=== PATIENT | female | born 1965 | race Two or more races ===

== ENCOUNTER 2017-12-01 09:19 | Day surgery (SDC) | payer OTHER ==
--- NOTE | 2017-11-19 10:42 | HP ---
PREOPERATIVE HISTORY AND PHYSICAL: DATE OF ADMISSION/SURGERY: 12/01/17 [facility] ATTENDING PHYSICIAN: Sarita Redding MD * (DICTATED BY CHRISTY STARKEY) PRINCIPAL DIAGNOSIS: Right carpal tunnel syndrome and right cubital tunnel syndrome. PROCEDURE: Right carpal tunnel release and ulnar nerve decompression at the elbow. CHIEF COMPLAINT: Right hand numbness and tingling. HISTORY OF PRESENT ILLNESS: This is a 52-year-old female who complains of numbness and tingling in her right hand. This has been going on for several months. She does not recall any specific injury. She has numbness and tingling in her little finger as well as in the radial 3 digits. She had not had any treatment. She rates her pain as 5/10. Numbness comes and goes. She has had electrodiagnostic studies, which were positive for carpal tunnel syndrome. She is scheduled to undergo right wrist carpal tunnel release and ulnar nerve decompression at the elbow with Dr. Redding on 12/01/17. PAST MEDICAL HISTORY: Negative. PAST SURGICAL HISTORY: Eye surgery for cataract. FAMILY HISTORY: Noncontributory. SOCIAL HISTORY: She lives with her . She works as a cook. She quit smoking about a month ago. She consumes 5 to 6 alcoholic drinks per week. Denies recreational drug use. REVIEW OF SYSTEMS: General: Negative for fevers, chills, night sweats. No known anesthesia problems. HEENT: Negative for headaches, lightheadedness, or syncopal episodes. Integumentary: Negative for abrasions, lesions, or open wounds. Cardiothoracic: Negative for hypertension, atrial fibrillation. Negative for chest pain, palpitations or edema. Pulmonary: Negative for shortness of breath with exertion, chronic cough, COPD. GI: Negative or nausea , vomiting, diarrhea, constipation or GERD. : Negative for nocturia, urinary frequency, urgency, history of UTIs, or kidney problems. Musculoskeletal: Positive for current complaints. Negative for chronic or intermittent back pain. Neurological: Negative for history of seizures, stroke or epilepsy. Negative for anxiety or depression. Endocrine: Negative for diabetes or thyroid issues. Hematological: Negative for easy bruising or bleeding. Negative for DVT. Infectious disease: Negative for history of MRSA, hepatitic C or HIV. PHYSICAL EXAMINATION GENERAL: Well-developed, well nourished, 52-year-old female, in no acute distress. Awake, alert and oriented x3. Appropriate mood and affect. VITAL SIGNS: Height 64 inches, pulse is 92, blood pressure is 118/70, respirations 16, temperature is 98.0. HEENT: Head is normocephalic, atraumatic. Pupils are equal and round and react to light and accommodation. NECK: Supple with no palpable lymph nodes. Throat is clear. PULMONARY: Lungs clear to auscultation bilaterally. No wheezes, rales or rhonchi. CARDIOVASCULAR: Regular rate and rhythm. S1, S2. No murmurs, rubs or gallops. No edema. ABDOMEN: Soft, nontender. Positive bowel sounds throughout. NEUROLOGIC: Alert and oriented x3. Cranial nerves II through XII are grossly intact. Sensation is intact to light touch. MUSCULOSKELETAL: Right upper extremity: No soft tissue swelling or bruising. She has positive Tinel's sign at the ulnar nerve, the elbow and positive Tinel' s in the wrist. She will open and close her fingers without pain. She has full painless wrist motion. STUDIES: Electrodiagnostic studies done on 11/09/[address] Dey showed right moderate carpal tunnel syndrome. IMPRESSION: Right wrist carpal tunnel syndrome. PLAN/RECOMMENDATIONS: The patient is scheduled to undergo right wrist carpal tunnel release and ulnar nerve decompression at the elbow with Dr. Redding on 11/15. She will return to the office in 10 to 14 days postoperatively for followup and suture removal. A prescription for tramadol will be sent to the patient's pharmacy for postoperative pain management. CHRISTY STARKEY [id number]/CPS #: [id number] [facility]
[~2017-12-01 09:19] MED LIST: Buffered Lidocaine 0.9% SYRIN* 5 ML/SYR SYRINGE INTRADERM ONE
[2017-12-01] MEDS ORDERED: ceFAZolin 2 GM PREMIX (*) 2 GM/50 ML BAG IVPB ONE (09:21)
[2017-12-01] MEDS ORDERED: Bupivacaine 0.5%* 50 ML VIAL ONE (11:40)
[2017-12-01] MEDS ORDERED: fentaNYL* 50 MCG/ML 2 ML VIAL (100 MCG VIAL) ONE (11:49)
[2017-12-01] MEDS ORDERED: Propofol* 10 MG/ML 20 ML BTL IV PUSH ONE (12:00)
[2017-12-01] MEDS ORDERED: Lidocaine 2% PF * 5 ML VIAL ONE (12:00)
[2017-12-01] MEDS ORDERED: Naloxone* 0.4 MG/ML 1 ML VIAL IV PRN (12:08)
[2017-12-01] MEDS ORDERED: fentaNYL* 50 MCG/ML 2 ML VIAL (100 MCG VIAL) IV PRN (12:08)
[2017-12-01] MEDS ORDERED: Acetaminophen TAB* 325 MG PO PRN (12:08)
[2017-12-01] MEDS ORDERED: Acetaminophen TAB* 325 MG ONE (13:07)
[2017-12-01 13:46] VITALS: BP 140/73
--- NOTE | 2017-12-02 03:33 | OP ---
DATE OF OPERATION: 12/01/17 - [facility] DATE OF : 67 SURGEON: Dr. Redding. DIRECTOR OF NEIGHBORHOOD SERVICE CENTER: CHRISTY Bravo ANESTHESIA: General. PRE-OP DIAGNOSES: Right ulnar nerve compression of the elbow and right carpal tunnel syndrome. POST-OP DIAGNOSES: Right ulnar nerve compression of the elbow and right carpal tunnel syndrome. OPERATIVE PROCEDURE: Right ulnar nerve decompression of the elbow and right carpal tunnel release. ESTIMATED BLOOD LOSS: Zero. TOURNIQUET TIME: Approximately 30 minutes. INDICATIONS FOR PROCEDURE: Netta is a 52-year-old woman with numbness and tingling in the median and ulnar nerve distribution of the right hand. Nerve conduction studies showed carpal tunnel syndrome. She has positive Tinel sign of the ulnar nerve at the elbow. She presents for ulnar nerve decompression of the elbow and a carpal tunnel release, both on the right. DESCRIPTION OF PROCEDURE: The patient was brought to the operating room, was given a general anesthetic and placed in the supine position on the operating table with a tourniquet around her right upper arm. Skin of her right upper extremity was prepped and draped in the usual sterile fashion. The upper extremity was exsanguinated and the tourniquet elevated to 250 mmHg. A longitudinal incision was made in the palm in line with the ring finger. We dissected sharply through the subcutaneous tissue, down to the transverse carpal ligament. The ligament was divided sharply with the knife and then more proximally with the scissors. The nerve was dissected free from the surrounding tissue and there was an area of moderate compression at the mid portion of the ligament. The wound was irrigated and the skin edges were reapproximated with 4-0 nylon suture. Next, a curvilinear incision was made centered between the medial epicondyle and the tip of the olecranon process. We dissected bluntly through the subcutaneous tissue down to the ulnar nerve just proximal to the elbow. The nerve was carefully dissected through the cubital tunnel. The superficial and deep fascia of the FCU muscle was divided and then we dissected the nerve out proximally several centimeters. The medial inter-muscular septum was divided. The nerve was in good condition. The wound was irrigated and the subcutaneous tissue closed with 2-0 Polysorb and the skin with skin florinda. The wounds were both dressed with Xeroform, 4x4's, Webril, and an Austin wrap. The patient tolerated the procedure well and was brought to the recovery room in good condition. [id number]/[facility] #: [id number] [facility]
== END 2017-12-01 14:17 | disposition home or self-care (01) ==
LOC: OR 09:19
PROVIDERS: ATTEND Orthopaedic Surgery
DX: G56.01 Carpal tunnel syndrome, right upper limb (principal); G56.21 Lesion of ulnar nerve, right upper limb; Z87.891 Personal history of nicotine dependence; M19.90 Unspecified osteoarthritis, unspecified site
CPT/HCPCS: A9270-GY; J0690; J2704; J3010

== ENCOUNTER 2019-02-21 09:02 | Day surgery (SDC) | payer OTHER ==
--- NOTE | 2019-02-10 12:29 | HP ---
PREOPERATIVE HISTORY AND PHYSICAL: DATE OF ADMISSION/SURGERY: 02/21/19 [facility] ATTENDING SURGEON: Dr. Rafael Robin.* (DICTATED BY CHRISTY AREVALO) PROCEDURES: Right shoulder arthroscopic rotator cuff repair, decompression, debridement and possible subpectoral biceps tenodesis, excision of distal clavicle, removal of loose body. CHIEF COMPLAINT: Right shoulder. HISTORY OF PRESENT ILLNESS: Netta is a 54-year-old female who presents to clinic for right shoulder pain due to a rotator cuff tear due to a work-related injury. She has failed conservative measures, therefore agreed to undergo right shoulder arthroscopic rotator cuff repair, decompression, debridement, and possible subpectoral biceps tenodesis, excision distal clavicle, removal of loose body with Dr. Robin on 02/21/19. PAST MEDICAL HISTORY: Hyperthyroidism. PAST SURGICAL HISTORY: Cataract, right elbow and wrist, and . The patient denies prior complications with anesthesia. MEDICATIONS: 1. Iron daily. 2. Methimazole 10 mg 1 daily. 3. Brimonidine tartrate 0.15% 1 drop right eye 3 times a day. 4. Dorzolamide 2% 1 drop right eye twice a day. ALLERGIES: No known drug allergies. FAMILY HISTORY: Positive for [place]. Denies family history of DVT or PE. SOCIAL HISTORY: She lives with her . She works as a cook. She is a former smoker. She reports occasional alcohol consumption. She exercises regularly. She is right hand dominant. REVIEW OF SYSTEMS: A 14-point review of systems was reviewed with the patient. Positive for current complaint, otherwise negative. Denies fever, chills, chest pain, shortness of breath, history of bleeding disorder, history of DVT or PE. PHYSICAL EXAMINATION GENERAL: A 54-year-old, well-developed, well-nourished female, in no acute distress. VITAL SIGNS: Height 64, weight 111. Pulse 74, blood pressure 128/80, temperature 97.2. BMI 19.1. HEENT: Normocephalic, atraumatic. PERRLA. Throat clear. NECK: Supple. PULMONARY: Lungs clear to auscultation bilaterally. No wheezing, rhonchi, or rales. CARDIO: Regular rate and rhythm. S1, S2. No murmurs, gallops, or rubs. No edema. ABDOMEN: Positive bowel sounds. Soft, nontender. NEURO: Alert and oriented x3. Cranial nerves grossly intact. MUSCULOSKELETAL: Right upper extremity: Skin is intact. Tenderness over the anterior joint line and the subacromial space. Forward flexion 100, abduction 80 , passively able to get her a little pass. External rotation is 60, +4/5 strength to rotator cuff testing obtained. Positive impingement, Speed, Rebollar , Bang, [place]'s. +2 radial pulse. Sensation intact to light touch distally. DIAGNOSTIC STUDIES: MRI revealed a 1 cm loose body subacromial space and a full thickness tear of the rotator cuff. IMPRESSION: Right shoulder AC joint rotator cuff tear and loose body. PLAN: The patient is scheduled to undergo a right shoulder arthroscopic rotator cuff repair, decompression, debridement, possible subpectoral biceps tenodesis, excision of distal clavicle and removal of loose body with Dr. Robin on 02/21/19. Percocet will be used for postop pain management and the patient will follow up 10 to 14 days postop for followup and suture removal. CHRISTY AREVALO [id number]/CPS #: [id number] MTDPat
[~2019-02-21 09:02] MED LIST changes: -Buffered Lidocaine 0.9% SYRIN* 5 ML/SYR SYRINGE INTRADERM ONE; +Buffered Lidocaine 1% SYRIN* 1 ML/SYRINGE INTRADERM ONE; +Dexamethasone IV* 4 MG/ML 1 ML (4 MG) IV SLOW PU ONE; +Famotidine IV* 10 MG/ML 2 ML (20 mg) IV ONE; +Lactated Ringers 1000 ML Bag* 1,000 ML IV SCH
[2019-02-21] MEDS ORDERED: Dexamethasone IV* 4 MG/ML 1 ML (4 MG) ONE (09:38)
[2019-02-21] MEDS ORDERED: ceFAZolin 2 GM PREMIX in ORs 2 GM/50 ML BAG ONE (09:38)
[2019-02-21] MEDS ORDERED: Famotidine IV* 10 MG/ML 2 ML (20 mg) ONE (09:38)
[2019-02-21] MEDS ORDERED: ROPIVACAINE 5 MG/ML 30 ML BTL (0.5%) ONE (10:15)
[2019-02-21] MEDS ORDERED: Bupivacaine 0.25% SDV* 30 ML ONE (10:23)
[2019-02-21] MEDS ORDERED: Lidocaine 2% PF * 5 ML VIAL ONE (10:25)
[2019-02-21] MEDS ORDERED: Midazolam* 1 MG/ML 5 ML VIAL (5 MG) ONE (10:25)
[2019-02-21] MEDS ORDERED: Propofol* 10 MG/ML 20 ML BTL ONE (10:25)
[2019-02-21] MEDS ORDERED: fentaNYL* 50 MCG/ML 2 ML VIAL (100 MCG VIAL) ONE (10:25)
[2019-02-21] MEDS ORDERED: Ondansetron INJ* 2 MG/ML VIAL ONE (10:25)
[2019-02-21] MEDS ORDERED: fentaNYL* 50 MCG/ML 2 ML VIAL (100 MCG VIAL) IV PRN (11:19)
[2019-02-21] MEDS ORDERED: Naloxone* 0.4 MG/ML 1 ML VIAL IV PRN (11:19)
[2019-02-21] MEDS ORDERED: DiMENhydriNATE IV* 50 MG/ML VIAL IV PUSH PRN (11:19)
[2019-02-21] MEDS ORDERED: Scopolamine 1.5 mg* PATCH TRANSDERM PRN (11:19)
[2019-02-21] MEDS ORDERED: Ondansetron INJ* 2 MG/ML VIAL IV PRN (11:19)
[2019-02-21] MEDS ORDERED: oxyCODONE/Acetamin 5/325 MG* TAB PO PRN (11:19)
--- NOTE | 2019-02-21 13:57 | OP ---
DATE OF OPERATION: 02/21/19 - [facility] DATE OF : 67 SURGEON: Rafael Robin MD BOOK RETAILER: CHRISTY Shepard. An licensed investment sales assistant was needed for the entirety of the case to help with positioning, retraction, and was utilized throughout all portions of the case. ANESTHESIOLOGIST: Dr. Hart. ANESTHESIA: General interscalene block. PRE-OP DIAGNOSES: Right shoulder high-grade partial thickness tear of the rotator cuff, supraspinatus, loose body of the subacromial space, biceps tendonitis, and acromioclavicular joint arthritis. POST-OP DIAGNOSES: Right shoulder high-grade partial thickness tear of the rotator cuff, supraspinatus, loose body of the subacromial space, biceps tendonitis, and acromioclavicular joint arthritis. OPERATIVE PROCEDURE: Right shoulder arthroscopy with: 1. Extensive glenohumeral debridement. 2. Subacromial decompression with acromioplasty. 3. Distal clavicle excision. 4. Removal of loose body x1, 1.5 cm. 5. Rotator cuff repair using REGENETEN patch. 6. Open biceps tenodesis. COMPLICATIONS: None. ESTIMATED BLOOD LOSS: Minimal. INDICATIONS: Netta Humphrey is a 54-year-old female with a work-related injury that happened approximately a year ago. She had persistent pain refractory to conservative management. She underwent MRI, demonstrated a large loose body in the subacromial space. She had some high-grade partial thickness tearing of the rotator cuff as well as bicipital tendonitis. After extensive discussion of the risks, benefits, operative versus non-operative treatment, she elected to proceed with surgical treatment. Risks included but not limited to bleeding, infection; damage to nerves, vessel, surrounding structures; wound nonhealing; persistent pain; need for surgery; scarring, stiffness; incomplete relief of symptom; risk of anesthesia; need for further surgery; retear; further repair; risk of DVT. She has elected to proceed. DESCRIPTION OF PROCEDURE: The patient was greeted in the preoperative area by the attending surgeon. Correct extremity was marked and consent was confirmed. The patient underwent interscalene nerve block by the anesthesiologist after which she was brought back to the operating suite. She was placed in supine position on the operating table after which she underwent interscalene nerve block. She was brought back to the operating suite. She was placed in supine position on the operating table. She then underwent general anesthesia and endotracheal intubation after which she was appropriately positioned in the left lateral decubitus position. All bony prominences were padded. She was secured with a pegboard. The right shoulder was prepped and draped in the usual sterile fashion beginning with chlorhexidine soap, scrub, and alcohol wipe and a final prep with ChloraPrep. After appropriate surgical pause indicating side, site, procedure, and administration of antibiotics, a posterolateral portal was made sharply with 11 blade. The scope was introduced into the joint. Joint was examined. There was abundant synovitis in the joint. The biceps had fraying as well as superior labrum biceps insertion with anchor was damaged. Subscap was intact. There was damage to the ace. There was a high-grade partial thickness tear of the rotator cuff with unstable flap. The anterior portal was made in an outside-in fashion. The shaver was used to debride back the anterior, posterior , and superior labrum. Biceps was tenotomized for later tenodesis. The inferior recess was intact. The glenohumeral joint had grade 0 to 1 changes. The shaver was used to debride back the anterior, posterior, superior labrum, and the undersurface of the rotator cuff. Once this was complete, attention was directed to the subacromial space. With the scope positioned in the subacromial space, lateral portal was made in an outside-in fashion. Shaver was used to debride back the abundant thick bursa and synovitis that was present. There were multiple little loose bodies. Based on preoperative evaluation, the blunt trocar was used to try to localize to see if the large loose body could be identified which was. This was then removed carefully with the large grasper and placed on the back table. Shaver was used to debride back the abundant thick bursa that was present. The undersurface of the acromion was skeletonized using electrocautery device. There was a large anterolateral spur. The 4-0 oval peyton was then used to do an acromioplasty. All loose debris was removed from this and then attention was directed to the AC joint. The peyton was brought into the anterior portal, the distal 8 mm of the clavicle were then resected using 4-0 oval peyton. There was a small calcific area of meniscus that was also debrided back. Once this was done, there was no evidence of impingement. All loose debris was removed. Attention was directed to the subacromial space again. The cuff was visualized and found to be intact on the bursal side but there was some evidence of exposed greater tuberosity; however, it was unable to connect directly to the joint. Decision was made to proceed with REGENETEN patch. Medium sized REGENETEN patch was then brought to the field, placed in appropriate position. This was carried medially with tendon florinda. After that was secured medially, it was secured laterally with PEEK florinda. It was found to be well seated. Shoulder was taken through gentle range of motion, it was found to sit well. Final images were obtained. The wounds were copiously irrigated with sterile saline and attention was directed to the biceps. The bed was air planed to the right side. The anterior aspect of the shoulder was prepped again using ChloraPrep. A 15-blade was used to make an incision in line with the biceps tendon. Soft tissues were carefully dissected to expose the pec fascia, which was then elevated. Remainder of the dissection was done bluntly. The biceps was brought through the wound. The groove was prepared in the usual fashion with electrocautery device, red ball rasp, and osteotome. A Q -Fix drill guide was then drilled and placed unicortically with excellent purchase. The sutures were then passed in Yoshi-Gerhard type configuration and tied down. Excess stump was excised. The wounds were then copiously irrigated with sterile saline. Sterile dressings were applied. The portals were closed with 0 nylon. The anterior wound was closed in layers with 3-0 Monocryl. Sterile dressings were applied. A Cryo/Cuff was applied and a shoulder immobilizer. The sling was applied. She was awoken from anesthesia and transferred to the recovery room in stable condition. POSTOPERATIVE PLAN: She will be nonweightbearing. She will be discharged on pain medication. DVT prophylaxis was considered but deferred due to no previous or personal family history. I will see the patient back in 10 to 14 days. [id number]/[facility] #: [id number] MTDPat
[2019-02-21 13:58] VITALS: BP 151/81
== END 2019-02-21 13:49 | disposition home or self-care (01) ==
LOC: OREAST 09:02
PROVIDERS: ATTEND Orthopaedic Surgery
DX: S46.011A Strain of muscle(s) and tendon(s) of the rotator cuff of right shoulder, initial encounter (principal); M75.21 Bicipital tendinitis, right shoulder; M19.011 Primary osteoarthritis, right shoulder; G89.18 Other acute postprocedural pain; Z87.891 Personal history of nicotine dependence; X58.XXXA Exposure to other specified factors, initial encounter; Y92.89 Other specified places as the place of occurrence of the external cause; Y99.0 Civilian activity done for income or pay
CPT/HCPCS: 81025; C1713; C1776; J0690; J1100; J2250; J2405; J2704; J2795; J3010; J3490